=== PATIENT | female | born 1955 | race Caucasian/White ===

== ENCOUNTER 2017-08-26 21:01 | Inpatient (IN) | payer OTHER ==
[~2017-08-26] VITALS: Ht 165.1 cm; Wt 73.9 kg
[2017-08-26 20:30] VITALS: BP 138/72
[2017-08-26] MEDS ORDERED: Z GUARD REMEDY PASTE 57 GM TUBE TOP PRN (21:45)
[2017-08-26] MEDS ORDERED: OXYC-133 PO (21:57)
[2017-08-26] MEDS ORDERED: ZOLP12.542 PO (21:57)
[2017-08-26] MEDS ORDERED: VERA120T91 PO (21:58)
[2017-08-26] MEDS ORDERED: PANT20TA2 PO (21:58)
[2017-08-26] MEDS ORDERED: LORA1TAB PO (21:58)
[2017-08-26] MEDS ORDERED: PRAM0.253 PO (21:58)
[2017-08-26] MEDS ORDERED: MELO-107 PO (21:58)
[2017-08-26] MEDS ORDERED: LORAZEPAM 1 MG TABLET PO PRN (22:45)
[2017-08-27] MEDS: HYDROCODONE/APAP 5-325MG TABLET PO PRN ×2 (00:28→08:47)
[2017-08-27] MEDS: ZOLPIDEM 5 MG TABLET PO PRN ×2 (00:30→22:34)
[2017-08-27 01:52] LABS: *BILIRUBIN,URIN NEGATIVE (NEGATIVE); *BLOOD, URINE NEGATIVE (NEGATIVE); *CLARITY,URINE CLEAR (CLEAR); *COLOR,URINE YELLOW (YELLOW); *KETONES,URINE NEGATIVE (NEGATIVE); *PROTEIN,URINE NEGATIVE (NEGATIVE); *UROBILINOGEN,URINE 0.2 E.U./dl (NORMAL); LEUKOCYTE ESTERASE ,URINE NEGATIVE (NEGATIVE); NITRITE, URINE NEGATIVE (NEGATIVE); PH,URINE 7.5 (5.0-8.0); UGLUCOSE NEGATIVE (NEGATIVE)
[2017-08-27 02:07] LABS: BACTERIA,URINE NONE SEEN /HPF (NONE SEEN); RBC,URINE 0-3 /HPF (0-3); SQUAMOUS EPITHELIAL CELL,UR FEW /HPF (NONE SEEN); WBC,URINE 0-3 /HPF (0-3)
[2017-08-27] MEDS: PANTOPRAZOLE SODIUM 40 MG TABLET.DR PO SCH (06:23)
[2017-08-27 07:53] LABS: BASOPHILS % (AUTO) 0.5 % (0.0-2.0); EOSINOPHILS # (AUTO) 0.2 K/uL (0.0-0.7); EOSINOPHILS % (AUTO) 2.9 % (0.0-7.0); HEMATOCRIT 31.3 % (31.2-41.9); HEMOGLOBIN 10.7 g/dL (10.9-14.3); LYMPHOCYTES # (AUTO) 0.8 K/uL (20.0-40.0); LYMPHOCYTES % (AUTO) 14.9 % (20.5-51.5); MEAN CORPUSCULAR HEMOGLOBIN 32.4 uug (24.7-32.8); MEAN CORPUSCULAR HGB CONC 34 g/dL (32.3-35.6); MEAN CORPUSCULAR VOLUME 94.5 fL (75.5-95.3); MONOCYTES # (AUTO) 0.5 K/uL (2.0-10.0); MONOCYTES % (AUTO) 8.7 % (0.0-11.0); NEUTROPHILS # (AUTO) 3.9 K/uL (1.8-8.9); PLATELET COUNT (AUTO) 206 K/uL (179-408); RED BLOOD CELL COUNT(AUTO) 3.31 MIL/uL (3.63-4.92); WHITE BLOOD COUNT (AUTO) 5.3 K/uL (3.8-11.8)
[2017-08-27 08:00] VITALS: BP 147/87
[2017-08-27 08:12] LABS: THYROID STIMULATING HORMONE 1.906 mIU/mL (0.358-3.740)
[2017-08-27] MEDS: MELOXICAM 7.5 MG TABLET PO SCH (08:47)
[2017-08-27] MEDS: VERAPAMIL SR 120 MG TABLET.SA PO SCH (08:48)
[2017-08-27 08:53] LABS: BILIRUBIN,TOTAL 0.7 mg/dL (0.2-1.0); CREATININE 0.6 mg/dL (0.6-1.3); PHOSPHOROUS 3.7 mg/dL (2.5-4.9); POTASSIUM 3.7 mmol/L (3.5-5.1); TOTAL PROTEIN, SERUM 6.3 g/dL (6.4-8.2)
[2017-08-27] MEDS: OXYCODONE/APAP 5-325 MG TABLET PO PRN ×3 (11:48→20:32)
[2017-08-27 19:30] VITALS: BP 109/66
[2017-08-27] MEDS: PRAMIPEXOLE 0.25 MG TABLET PO SCH (20:32)
[2017-08-28] MEDS: OXYCODONE/APAP 5-325 MG TABLET PO PRN ×5 (04:43→21:53)
[2017-08-28] MEDS: PANTOPRAZOLE SODIUM 40 MG TABLET.DR PO SCH (06:44)
[2017-08-28 07:30] VITALS: BP 108/66
[2017-08-28] MEDS: MELOXICAM 7.5 MG TABLET PO SCH (09:01)
[2017-08-28] MEDS: VERAPAMIL SR 120 MG TABLET.SA PO SCH (09:39)
[2017-08-28] MEDS: BISACODYL 5 MG TABLET.DR PO SCH (12:07)
[2017-08-28] MEDS ORDERED: WARFARIN SODIUM 3 MG TABLET PO ONE (19:27)
[2017-08-28 19:54] VITALS: BP 104/57
[2017-08-28] MEDS: ZOLPIDEM 5 MG TABLET PO PRN (20:59)
[2017-08-28] MEDS: PRAMIPEXOLE 0.25 MG TABLET PO SCH (20:59)
[2017-08-28] MEDS ORDERED: ENOXAPARIN SODIUM 80 MG/0.8 ML DISP.SYRIN SQ SCH (21:00)
[2017-08-28] MEDS ORDERED: ENOXAPARIN SODIUM 80 MG/0.8 ML DISP.SYRIN SQ ONE (21:36)
[2017-08-29] MEDS: OXYCODONE/APAP 5-325 MG TABLET PO PRN ×5 (04:12→21:38)
[2017-08-29] MEDS: PANTOPRAZOLE SODIUM 40 MG TABLET.DR PO SCH (06:14)
[2017-08-29 07:30] VITALS: BP 120/59
[2017-08-29] MEDS: VERAPAMIL SR 120 MG TABLET.SA PO SCH (08:31)
[2017-08-29] MEDS: BISACODYL 5 MG TABLET.DR PO SCH (08:31)
[2017-08-29] MEDS: MELOXICAM 7.5 MG TABLET PO SCH (08:31)
[2017-08-29] MEDS: ENOXAPARIN SODIUM 80 MG/0.8 ML DISP.SYRIN SQ SCH ×2 (12:45→20:52)
[2017-08-29] MEDS ORDERED: COUMADIN VARIABLE DOSE REMINDE XX SCH (17:00)
[2017-08-29] MEDS ORDERED: WARFARIN SODIUM 3 MG TABLET PO ONE (17:00)
[2017-08-29 19:30] VITALS: BP 119/68
[2017-08-29] MEDS ORDERED: KETOROLAC TROMETHAMINE 30 MG INJ IM ONE (20:45)
[2017-08-29] MEDS: PRAMIPEXOLE 0.25 MG TABLET PO SCH (20:50)
[2017-08-29] MEDS: ZOLPIDEM 5 MG TABLET PO PRN (21:38)
[2017-08-30] MEDS: OXYCODONE/APAP 5-325 MG TABLET PO PRN ×5 (01:58→21:20)
[2017-08-30] MEDS: PANTOPRAZOLE SODIUM 40 MG TABLET.DR PO SCH (06:05)
[2017-08-30] MEDS: MELOXICAM 7.5 MG TABLET PO SCH (08:39)
[2017-08-30] MEDS: BISACODYL 5 MG TABLET.DR PO SCH (08:39)
[2017-08-30] MEDS: VERAPAMIL SR 120 MG TABLET.SA PO SCH (08:40)
[2017-08-30] MEDS: ENOXAPARIN SODIUM 80 MG/0.8 ML DISP.SYRIN SQ SCH ×3 (08:47→21:00)
[2017-08-30 08:59] VITALS: BP 148/84
[2017-08-30] MEDS ORDERED: COUMADIN VARIABLE DOSE REMINDE XX SCH (17:00)
[2017-08-30] MEDS ORDERED: WARFARIN SODIUM 5 MG TABLET PO ONE (19:00)
[2017-08-30] MEDS ORDERED: WARFARIN SODIUM 2 MG TABLET PO ONE (19:00)
[2017-08-30 20:26] VITALS: BP 126/70
[2017-08-30] MEDS: ZOLPIDEM 5 MG TABLET PO PRN (20:34)
[2017-08-30] MEDS: PRAMIPEXOLE 0.25 MG TABLET PO SCH (20:34)
[2017-08-31] MEDS: OXYCODONE/APAP 5-325 MG TABLET PO PRN ×5 (02:42→20:20)
[2017-08-31] MEDS: PANTOPRAZOLE SODIUM 40 MG TABLET.DR PO SCH (06:26)
[2017-08-31 08:02] VITALS: BP 140/78
[2017-08-31] MEDS: VERAPAMIL SR 120 MG TABLET.SA PO SCH (08:07)
[2017-08-31] MEDS: MELOXICAM 7.5 MG TABLET PO SCH (08:07)
[2017-08-31] MEDS: BISACODYL 5 MG TABLET.DR PO SCH (08:07)
[2017-08-31] MEDS ORDERED: ENOXAPARIN SODIUM 80 MG/0.8 ML DISP.SYRIN SQ SCH (09:00)
[2017-08-31] MEDS: WARFARIN SODIUM 4 MG TABLET PO SCH (16:24)
[2017-08-31 20:20] VITALS: BP 117/66
[2017-08-31] MEDS: PRAMIPEXOLE 0.25 MG TABLET PO SCH (20:20)
[2017-08-31] MEDS: ZOLPIDEM 5 MG TABLET PO PRN (22:10)
[2017-09-01] MEDS: OXYCODONE/APAP 5-325 MG TABLET PO PRN ×5 (03:19→20:57)
[2017-09-01] MEDS: PANTOPRAZOLE SODIUM 40 MG TABLET.DR PO SCH (06:25)
[2017-09-01] MEDS: MELOXICAM 7.5 MG TABLET PO SCH (08:27)
[2017-09-01] MEDS: BISACODYL 5 MG TABLET.DR PO SCH (08:28)
[2017-09-01] MEDS: VERAPAMIL SR 120 MG TABLET.SA PO SCH (08:32)
[2017-09-01] MEDS: WARFARIN SODIUM 4 MG TABLET PO SCH (16:49)
[2017-09-01 20:46] VITALS: BP 117/70
[2017-09-01] MEDS: PRAMIPEXOLE 0.25 MG TABLET PO SCH (20:57)
[2017-09-01] MEDS: ZOLPIDEM 5 MG TABLET PO PRN (22:07)
[2017-09-02] MEDS: OXYCODONE/APAP 5-325 MG TABLET PO PRN ×7 (01:50→22:10)
[2017-09-02] MEDS: PANTOPRAZOLE SODIUM 40 MG TABLET.DR PO SCH (06:06)
[2017-09-02 07:11] LABS: CREATININE 0.8 mg/dL (0.6-1.3); MAGNESIUM 2.1 mg/dL (1.8-2.4); PHOSPHOROUS 4.1 mg/dL (2.5-4.9); POTASSIUM 4.1 mmol/L (3.5-5.1)
[2017-09-02 07:47] LABS: BASOPHILS % (AUTO) 0.6 % (0.0-2.0); EOSINOPHILS # (AUTO) 0.2 K/uL (0.0-0.7); EOSINOPHILS % (AUTO) 3.7 % (0.0-7.0); HEMATOCRIT 29.8 % (31.2-41.9); HEMOGLOBIN 10.1 g/dL (10.9-14.3); LYMPHOCYTES # (AUTO) 1.4 K/uL (20.0-40.0); LYMPHOCYTES % (AUTO) 24.1 % (20.5-51.5); MEAN CORPUSCULAR HEMOGLOBIN 32.3 uug (24.7-32.8); MEAN CORPUSCULAR HGB CONC 34 g/dL (32.3-35.6); MONOCYTES # (AUTO) 0.7 K/uL (2.0-10.0); MONOCYTES % (AUTO) 11.2 % (0.0-11.0); NEUTROPHILS # (AUTO) 3.5 K/uL (1.8-8.9); NEUTROPHILS % (AUTO) 60.4 % (38.5-71.5); RED BLOOD CELL COUNT(AUTO) 3.13 MIL/uL (3.63-4.92); WHITE BLOOD COUNT (AUTO) 5.9 K/uL (3.8-11.8)
[2017-09-02 08:11] LABS: PLATELET COUNT (AUTO) 309 K/uL (179-408)
[2017-09-02] MEDS: VERAPAMIL SR 120 MG TABLET.SA PO SCH (09:27)
[2017-09-02] MEDS: MELOXICAM 7.5 MG TABLET PO SCH (09:27)
[2017-09-02] MEDS: BISACODYL 5 MG TABLET.DR PO SCH (09:27)
[2017-09-02] MEDS: WARFARIN SODIUM 3 MG TABLET PO SCH (17:00)
[2017-09-02 19:51] VITALS: BP 107/70
[2017-09-02] MEDS: PRAMIPEXOLE 0.25 MG TABLET PO SCH (20:34)
[2017-09-02] MEDS: ZOLPIDEM 5 MG TABLET PO PRN (20:34)
[2017-09-03] MEDS: OXYCODONE/APAP 5-325 MG TABLET PO PRN ×6 (02:22→22:40)
[2017-09-03] MEDS: PANTOPRAZOLE SODIUM 40 MG TABLET.DR PO SCH (06:13)
[2017-09-03 08:24] VITALS: BP 116/65
[2017-09-03] MEDS: VERAPAMIL SR 120 MG TABLET.SA PO SCH (10:14)
[2017-09-03] MEDS: MELOXICAM 7.5 MG TABLET PO SCH (10:14)
[2017-09-03] MEDS: BISACODYL 5 MG TABLET.DR PO SCH (10:21)
[2017-09-03] MEDS: WARFARIN SODIUM 3 MG TABLET PO SCH (18:16)
[2017-09-03] MEDS: BISACODYL 10 MG SUPP.RECT RC PRN (18:16)
[2017-09-03] MEDS: PRAMIPEXOLE 0.25 MG TABLET PO SCH (20:27)
[2017-09-03 20:49] VITALS: BP 125/56
[2017-09-03] MEDS: ZOLPIDEM 5 MG TABLET PO PRN (22:40)
[2017-09-04] MEDS: OXYCODONE/APAP 5-325 MG TABLET PO PRN ×5 (03:57→23:16)
[2017-09-04] MEDS: PANTOPRAZOLE SODIUM 40 MG TABLET.DR PO SCH (06:34)
[2017-09-04 08:49] VITALS: BP 117/65
[2017-09-04] MEDS: VERAPAMIL SR 120 MG TABLET.SA PO SCH (09:31)
[2017-09-04] MEDS: BISACODYL 5 MG TABLET.DR PO SCH (09:31)
[2017-09-04] MEDS: MELOXICAM 7.5 MG TABLET PO SCH (09:31)
[2017-09-04] MEDS: WARFARIN SODIUM 3 MG TABLET PO SCH (17:09)
[2017-09-04 20:20] VITALS: BP 110/53
[2017-09-04] MEDS: PRAMIPEXOLE 0.25 MG TABLET PO SCH (21:10)
[2017-09-04] MEDS: ZOLPIDEM 5 MG TABLET PO PRN (21:10)
[2017-09-05] MEDS: PANTOPRAZOLE SODIUM 40 MG TABLET.DR PO SCH (06:34)
[2017-09-05] MEDS: OXYCODONE/APAP 5-325 MG TABLET PO PRN ×5 (06:37→19:31)
[2017-09-05 07:30] VITALS: BP 116/66
[2017-09-05] MEDS: MELOXICAM 7.5 MG TABLET PO SCH (08:45)
[2017-09-05] MEDS: VERAPAMIL SR 120 MG TABLET.SA PO SCH (08:45)
[2017-09-05] MEDS: BISACODYL 5 MG TABLET.DR PO SCH (08:45)
[2017-09-05] MEDS: WARFARIN SODIUM 3 MG TABLET PO SCH (18:00)
[2017-09-05 20:00] VITALS: BP 102/59
[2017-09-05] MEDS: ZOLPIDEM 5 MG TABLET PO PRN (20:57)
[2017-09-05] MEDS: PRAMIPEXOLE 0.25 MG TABLET PO SCH (20:57)
[2017-09-06] MEDS: OXYCODONE/APAP 5-325 MG TABLET PO PRN ×4 (03:43→20:07)
[2017-09-06] MEDS: PANTOPRAZOLE SODIUM 40 MG TABLET.DR PO SCH (06:36)
[2017-09-06 07:55] VITALS: BP 120/74
[2017-09-06] MEDS: BISACODYL 5 MG TABLET.DR PO SCH (08:58)
[2017-09-06] MEDS: MELOXICAM 7.5 MG TABLET PO SCH (08:59)
[2017-09-06] MEDS: VERAPAMIL SR 120 MG TABLET.SA PO SCH (08:59)
[2017-09-06] MEDS: WARFARIN SODIUM 3 MG TABLET PO SCH (17:28)
[2017-09-06 19:30] VITALS: BP 115/67
[2017-09-06] MEDS: PRAMIPEXOLE 0.25 MG TABLET PO SCH (20:05)
[2017-09-06] MEDS: BISACODYL 10 MG SUPP.RECT RC PRN (20:06)
[2017-09-06] MEDS: ZOLPIDEM 5 MG TABLET PO PRN (20:06)
[2017-09-07] MEDS: PANTOPRAZOLE SODIUM 40 MG TABLET.DR PO SCH (06:22)
[2017-09-07 07:15] VITALS: BP 130/61
[2017-09-07] MEDS: VERAPAMIL SR 120 MG TABLET.SA PO SCH (09:01)
[2017-09-07] MEDS: MELOXICAM 7.5 MG TABLET PO SCH (09:01)
[2017-09-07] MEDS: BISACODYL 5 MG TABLET.DR PO SCH (09:01)
[2017-09-07] MEDS: OXYCODONE/APAP 5-325 MG TABLET PO PRN ×3 (14:17→21:05)
[2017-09-07] MEDS: WARFARIN SODIUM 3 MG TABLET PO SCH (16:23)
[2017-09-07 20:00] VITALS: BP 114/71
[2017-09-07] MEDS: BISACODYL 10 MG SUPP.RECT RC PRN (20:12)
[2017-09-07] MEDS: PRAMIPEXOLE 0.25 MG TABLET PO SCH (21:05)
[2017-09-07] MEDS: ZOLPIDEM 5 MG TABLET PO PRN (21:05)
[2017-09-08] MEDS: OXYCODONE/APAP 5-325 MG TABLET PO PRN ×6 (02:35→23:24)
[2017-09-08] MEDS: PANTOPRAZOLE SODIUM 40 MG TABLET.DR PO SCH (06:22)
[2017-09-08 08:43] VITALS: BP 124/65
[2017-09-08] MEDS: BISACODYL 5 MG TABLET.DR PO SCH (10:04)
[2017-09-08] MEDS: VERAPAMIL SR 120 MG TABLET.SA PO SCH (10:04)
[2017-09-08] MEDS: MELOXICAM 7.5 MG TABLET PO SCH (10:04)
[2017-09-08] MEDS: WARFARIN SODIUM 3 MG TABLET PO SCH (19:04)
[2017-09-08 20:09] VITALS: BP 119/63
[2017-09-08] MEDS: PRAMIPEXOLE 0.25 MG TABLET PO SCH (20:38)
[2017-09-08] MEDS ORDERED: ZOLPIDEM 5 MG TABLET PO ONE (23:30)
[2017-09-09] MEDS: OXYCODONE/APAP 5-325 MG TABLET PO PRN (05:39)
[2017-09-09] MEDS: PANTOPRAZOLE SODIUM 40 MG TABLET.DR PO SCH (06:06)
[2017-09-09 08:28] VITALS: BP 112/66
[2017-09-09 08:39] VITALS: BP 122/70
[2017-09-09] MEDS: BISACODYL 5 MG TABLET.DR PO SCH (08:39)
[2017-09-09] MEDS: VERAPAMIL SR 120 MG TABLET.SA PO SCH (08:39)
[2017-09-09] MEDS: MELOXICAM 7.5 MG TABLET PO SCH (08:39)
== END 2017-09-09 09:35 | disposition home or self-care (01) | DRG 560 ==
PROVIDERS: ADMIT Physical Medicine & Rehabilitation Pain Medicine; ATTEND Physical Medicine & Rehabilitation Pain Medicine
DX: Z47.1 Aftercare following joint replacement surgery (principal); D68.59 Other primary thrombophilia; E44.0 Moderate protein-calorie malnutrition; I48.0 Paroxysmal atrial fibrillation; D64.9 Anemia, unspecified; F41.9 Anxiety disorder, unspecified; I10 Essential (primary) hypertension; Z96.651 Presence of right artificial knee joint; Z96.649 Presence of unspecified artificial hip joint; Z79.01 Long term (current) use of anticoagulants
CPT/HCPCS: 36415; 71045; 73560; 73562; 82306; 83735; 84100; 84443; 85025; 85610; 87086; 92526; 92610; 97110; 97112; 97116; 97165; 97530; 97535; J1650; J1885